=== PATIENT | female | born 1990 | race American Indian/Alaskan Native ===

== ENCOUNTER 2017-07-23 11:51 | Outpatient (CLI) | payer MEDICAID ==
[2017-07-23] MEDS ORDERED: LACTATED RINGERS 500 ML IV ONE (13:41)
[2017-07-23 14:02] LABS: Bacteria,Urine 1+ /HPF (Negative); Bilirubin,Urine NEG (Negative); Blood,Urine SM (Negative); Color,Urine Amber (Yellow); Mucus,Urine FEW /HPF; Nitrite,Urine NEG (Negative)
[2017-07-23] MEDS ORDERED: ZOFRAN ONE (14:31)
[2017-07-23] MEDS ORDERED: ZOFRAN IV ONE (14:33)
[2017-07-23] MEDS ORDERED: TYLENOL PO ONE (14:34)
[2017-07-23 18:53] LABS: Basophils # (Auto) 0.1 K/mm3 (0.0-0.1); Basophils % (Auto) 0.5 % (0.0-1.8); Hematocrit 39.8 % (30.3-42.9); Hemoglobin 13.5 gm/dl (10.1-14.3); Lymphocytes # (Auto) 0.9 K/mm3 (1.2-5.4); Lymphocytes % (Auto) 8.5 % (13.4-35.0); Mean Corpuscular HGB Conc 34 % (30-34); Mean Corpuscular Hemoglobin 34 pg (28-32); Mean Corpuscular Volume 99 fl (79-97); Monocytes # (Auto) 1.3 K/mm3 (0.0-0.8); Monocytes % (Auto) 13.1 % (0.0-7.3); Platelet Count 243 K/mm3 (140-440); Red Blood Count 4.01 M/mm3 (3.65-5.03); Red Cell Distribution Width 13.2 % (13.2-15.2)
[2017-07-23] MEDS ORDERED: ROCEPHIN/NS 1 GM/50 ML 1 GM/50 ML BAG IV ONE (19:06)
[2017-07-23] MEDS ORDERED: cefTRIAXone 1 GM in NACL 0.9% 20 ML IV ONE (19:15)
[2017-07-23] MEDS ORDERED: LACTATED RINGERS 1,000 ML IV SCH (20:00)
== END 2017-07-23 20:55 | disposition home or self-care (01) ==
LOC: EDSTATUS 12:24 → TRG 12:27
PROVIDERS: ATTEND Obstetrics & Gynecology Gynecology
DX: O99.333 Smoking (tobacco) complicating pregnancy, third trimester (principal); O47.03 False labor before 37 completed weeks of gestation, third trimester; Z3A.30 30 weeks gestation of pregnancy
CPT/HCPCS: 36415; 81001; 82731; 85025; 87400; J0696; J2405; J7120; 96374

== ENCOUNTER 2020-01-20 09:34 | Emergency (ER) | payer MEDICAID ==
[2020-01-20 13:08] VITALS: BP 126/69
[2020-01-20] MEDS ORDERED: ONDANSETRON 4 MG ODT TAB PO ONE (13:19)
--- NOTE | 2020-01-20 13:24 | Emergency Department Report ---
ED Asthma HPI - General Chief Complaint: Dyspnea/Respdistress Stated Complaint: SOB/23 WEEKS ABD PAIN Time Seen by Provider: 01/20/20 11:30 Source: patient Mode of arrival: Ambulatory Limitations: No Limitations - History of Present Illness Initial Comments: 29-year-old female the past medical history of asthma currently 22 weeks presents to the hospital complaining of wheezing and shortness of breath x2 days. Patient ran out of her inhaler and therefore came to the ED today. Patient was initially short of breath and wheezing upon arrival but felt better after drinking a caffeinated coffee. She no longer complains of shortness of breath or wheezing. She has been experiencing intermittent cough with posttussive emesis. She denies known exposure to cold weight loss of sense of taste or smell, or fever. She has had intermittent nausea and vomiting throughout her and is taking Zofran currently. Patient has not had any Zofran today. She complains of intermittent lower abdominal cramping but denies vaginal bleeding or dysuria. She feels the baby moving. - Related Data Previous Rx's Medication Instructions Recorded Last Taken Type Acetaminophen [Tylenol] 325 mg PO Q6HR PRN #30 tablet 07/23/17 Unknown Rx Nitrofurantoin [place]/M-Cryst 100 mg PO Q12HR #14 capsule 07/23/17 Unknown Rx [Macrobid CAP] Oseltamivir [Tamiflu] 75 mg PO BID #10 cap 07/23/17 Unknown Rx ALBUTEROL NEB's [Proventil 0.083% 1 - 2 puff IH TID PRN #1 neb 01/20/20 Unknown Rx NEBS] Allergies Allergy/AdvReac Type Severity Reaction Status Date / Time No Known Allergies Allergy Verified 01/20/20 10:00 ED Review of Systems ROS: Stated complaint: SOB/23 WEEKS ABD PAIN Other details as noted in HPI Comment: All other systems reviewed and negative ED Past Medical Hx - Past Medical History Hx Hypertension: No Hx Diabetes: No Hx Deep Vein Thrombosis: No Hx Renal Disease: No Hx Sickle Cell Disease: No Hx Seizures: No Hx Asthma: Yes (inhaler albuterol) Hx HIV: No - Social History Smoking Status: Current Every Day Smoker - Medications Home Medications: Home Medications Medication Instructions Recorded Confirmed Last Taken Type Acetaminophen [Tylenol] 325 mg PO Q6HR PRN #30 tablet 01/22/18 Unknown Rx Nitrofurantoin [place]/M-Cryst 100 mg PO Q12HR #14 capsule 07/23/17 Unknown Rx [Macrobid CAP] Oseltamivir [Tamiflu] 75 mg PO BID #10 cap 07/23/17 Unknown Rx ALBUTEROL NEB's [Proventil 0.083% 1 - 2 puff IH TID PRN #1 neb 01/20/20 Unknown Rx NEBS] ED Physical Exam - General Limitations: No Limitations - Other Other exam information: General: No acute distress Head: Atraumatic Eyes: normal appearance ENT: Moist mucous membranes Neck: Normal appearance, no midline tenderness Chest: Clear to auscultation bilaterally CV: Regular rate and rhythm Abdomen: Soft, normal bowel sounds, nontender, gravid abdomen Back: Normal inspection Extremity: Normal inspection, full range of motion, no calf tenderness or leg edema Neuro: Alert O x 3, no facial asymmetry, speech clear, no gross motor sensory deficit Psych: Appropriate behavior Skin: No rash ED Course Vital Signs 01/20/20 13:07 Temperature 98.6 F Pulse Rate 85 Respiratory 16 Rate Blood Pressure 126/69 [Left] O2 Sat by Pulse 100 Oximetry ED Medical Decision Making - Medical Decision Making Patient is wheeze free after drinking coffee. She declined offer for nebulized treatments and she is no longer feeling short of breath. Patient declined UA checked since she is not having any dysuria or fever Patient provided Zofran for intermittent nausea. She has additional Zofran Albuterol inhaler will be refilled per her request Critical Care Time: No Critical care attestation.: If time is entered above; I have spent that time in minutes in the direct care of this critically ill patient, excluding procedure time. ED Disposition Clinical Impression: Asthma, Disposition: DC-01 TO HOME OR SELFCARE Is pt being admited?: No Does the pt Need Aspirin: No Condition: Stable Instructions: Asthma (ED) Additional Instructions: Take the medication as prescribed. Follow-up with your doctor or doctor/clinic provided. Return if symptoms worsen as indicated by your discharge instructions. Prescriptions: ALBUTEROL NEB's [Proventil 0.083% NEBS] 1 - 2 puff IH TID PRN #1 neb PRN Reason: Wheezing Referrals: PRIMARY CARE, [Primary Care Provider] - 3-5 Days Forms: Work/School Release Form(ED) Time of Disposition: 13:26
== END 2020-01-20 13:35 | disposition home or self-care (01) ==
LOC: ED 09:34
DX: O99.512 Diseases of the respiratory system complicating pregnancy, second trimester (principal); J45.901 Unspecified asthma with (acute) exacerbation; O99.332 Smoking (tobacco) complicating pregnancy, second trimester; Z3A.22 22 weeks gestation of pregnancy
CPT/HCPCS: 99282; Q0162